=== PATIENT | female | born 1970 | race Caucasian/White ===

== ENCOUNTER → 2017-02-03 | Outpatient (CLI) | payer BC ==
--- NOTE | 2017-02-03 16:54 | REPMRS ---
Patient History The patient states she had a clinical breast exam in 01/31 Patient is postmenopausal and had first child at age 34. No known family history of cancer. Taking estrogen for 5 years. Digital Woman Screen Mammo: February 03, 2017 - Exam #: [id number] Bilateral CC and MLO view(s) were taken. Technologist: Jerilyn Morales, Technologist Prior study comparison: January 23, 2015, digital woman screen mammo performed at [facility]. 2012, digital bilateral screening mammo, performed at [facility]. FINDINGS: There are scattered fibroglandular densities. There has been no change in the appearance of the mammogram from the prior studies. There is a mild amount of residual fibroglandular tissue which is fairly symmetric. There is no interval development of dominant mass, architectural distortion, or clustered microcalcification suggestive of malignancy. ASSESSMENT: BI-RADS/ACR category 1 mammogram. Negative. Recommendation Routine screening mammogram in 1 year (for women over age 40). This mammogram was interpreted with the aid of an FDA-approved computer-aided dectection system. Electronically Signed By: Tr Lewis MD 02/03/17 [id number]
== END ==
LOC: M WHC 14:08
PROVIDERS: ATTEND Nurse Practitioner Women's Health
DX: Z12.31 Encounter for screening mammogram for malignant neoplasm of breast (principal)

== ENCOUNTER → 2017-08-01 | Outpatient (REF) | payer BC ==
[2017-08-01 18:37] LABS: ALBUMIN 4.1 GM/DL (3.2-5.2); ALBUMIN/GLOBULIN RATIO 1.21 (1.00-1.93); ALKALINE PHOSPHATASE 97 U/L (45-117); ALT/SGPT 27 U/L (12-78); ANION GAP 7 MEQ/L (8-16); AST/SGOT 42 U/L (7-37); BILIRUBIN,TOTAL 0.3 MG/DL (0.2-1.0); BLOOD UREA NITROGEN 22 MG/DL (7-18); CALCIUM LEVEL 8.7 MG/DL (8.5-10.1); CARBON DIOXIDE LEVEL 25 MEQ/L (21-32); CHLORIDE LEVEL 108 MEQ/L (98-107); CREATININE FOR GFR 0.61 MG/DL (0.55-1.30); GLOMERULAR FILTRATION RATE > 60.0 (>58); GLUCOSE, FASTING 82 MG/DL (70-100); SODIUM LEVEL 140 MEQ/L (136-145); TOTAL PROTEIN 7.5 GM/DL (6.4-8.2)
== END ==
LOC: M SFHCPLAZ 16:11
DX: Z00.00 Encounter for general adult medical examination without abnormal findings (principal); R63.5 Abnormal weight gain
CPT/HCPCS: 84443

== ENCOUNTER → 2018-02-09 | Outpatient (CLI) | payer BC | LOC: M WHC 13:03 | DX: Z12.31 Encounter for screening mammogram for malignant neoplasm of breast (principal); Z78.0 Asymptomatic menopausal state; Z79.890 Hormone replacement therapy | CPT/HCPCS: 77067 ==

== ENCOUNTER → 2019-02-27 | Outpatient (CLI) | payer BC ==
--- NOTE | 2019-02-27 16:39 | REPMRS ---
Patient History The patient states she had a clinical breast exam in 02/2019. Patient is postmenopausal and had first child at age 34. No known family history of cancer. Taking estrogen for 7 years. Digital Woman Screen Mammo: February 27, 2019 - Exam #: [id number] Bilateral CC and MLO view(s) were taken. Technologist: Myrna Orozco, Technologist Prior study comparison: February 09, 2018, bilateral digital woman screen mammo performed at [facility]. February 03, 2017, digital woman screen mammo [facility]. January 23, 2015, digital woman screen mammo performed at [facility]. FINDINGS: There are scattered fibroglandular densities. There has been no change in the appearance of the mammogram from the prior studies. There is a mild amount of scattered fibroglandular density which is fairly symmetric. There is no interval development of dominant mass, architectural distortion, or grouped microcalcification suggestive of malignancy. 3-D tomosynthesis shows no additional findings. Assessment: BI-RADS/ACR category 1 mammogram. Negative Mammogram. Recommendation Routine screening mammogram of both breasts in 1 year (for women over age 40). This patient's Lifetime Breast Cancer Risk is estimated at 10.4 %. This mammogram was interpreted with the aid of an FDA-approved computer-aided dectection system. Electronically Signed By: Bharat Perdomo MD 02/27/19 9300
== END ==
LOC: M WHC 13:27
PROVIDERS: ATTEND Nurse Practitioner Women's Health
DX: Z12.31 Encounter for screening mammogram for malignant neoplasm of breast (principal)

== ENCOUNTER → 2020-03-06 | Outpatient (CLI) | payer BC ==
--- NOTE | 2020-03-06 15:01 | REPMRS ---
Patient History The patient states she had a clinical breast exam in February 2020. No known family history of cancer. Taking estrogen for 7 years. 3D TOMOSYNTHESIS WAS PERFORMED. [facility] for breast cancer [facility] 10.[facility]%. Volpara breast density b. Digital Woman Screen Mammo: March 06, 2020 - Exam #: [id number] Bilateral CC and MLO view(s) were taken. Technologist: Roxy Sadler, Technologist Prior study comparison: February 27, 2019, bilateral digital woman screen mammo performed at [facility]. February 09, 2018, bilateral digital woman screen mammo performed at [facility]. FINDINGS: There are scattered fibroglandular densities. There has been no change in the appearance of the mammogram from the prior studies. There is a mild amount of residual fibroglandular tissue which is fairly symmetric. There is no interval development of dominant mass, architectural distortion, or clustered microcalcification suggestive of malignancy. Assessment: BI-RADS/ACR category 1 mammogram. Negative Mammogram. Recommendation Routine screening mammogram in 1 year (for women over age 40). This mammogram was interpreted with the aid of an FDA-approved computer-aided dectection system. Electronically Signed By: Tr Lewis MD 03/06/20 [id number]
== END ==
LOC: M WHC 13:01
PROVIDERS: ATTEND Nurse Practitioner Women's Health
DX: Z12.31 Encounter for screening mammogram for malignant neoplasm of breast (principal); Z79.899 Other long term (current) drug therapy

== ENCOUNTER → 2021-01-01 | Outpatient (CLI) | payer BC ==
--- NOTE | 2021-01-02 17:01 | REP ---
INDICATION: ENLARGED LYMPHNODE LT POSTIOR SIDE OF NECK COMPARISON: None. TECHNIQUE: Grayscale and color evaluation using linear high-frequency transducer. FINDINGS: Directed ultrasound examination along the left posterior aspect of the neck at the site of palpable mass demonstrates a small ovoid hypoechoic lesion with central fatty hilum measuring 11 x 4 x 10 mm and consistent with small lymph node. IMPRESSION: Findings suggest small benign appearing lymph node. <Electronically signed by Dequan Cooper > 01/02/21 [id number]
== END ==
LOC: M RAD 15:41
PROVIDERS: ATTEND Nurse Practitioner Adult Health
DX: R59.0 Localized enlarged lymph nodes (principal)

== ENCOUNTER 2021-02-15 11:59 | Emergency (ER) | payer BC ==
[~2021-02-15] VITALS: Ht 165.1 cm; Wt 65.0 kg
[2021-02-15 12:00] VITALS: BP 134/70
--- OUTSIDE RECORDS SUMMARY | 2021-02-15 12:06 | CCD ---
Author Author [facility] Organization [facility] Address Unknown Phone Unavailable Care Team Providers Care Vp Construction Name Role Phone Do, Denise Unavailable PROBLEMS Type Condition ICD9-CM Code IJR11-EI Code Onset Dates Condition S tatus W/U Status Risk SNOMED Code Notes Problem Postmenopausal HRT (hormone replacement therapy) V07.4 Active confirmed 851557960 Problem S/P hysterectomy with oophorectomy V88.01 Activ e confirmed 040022960 Problem Altered bowel habits R19.4 Active confirmed 18496024 Problem Right knee pain, unspecified chronicity M25.561 Active confirmed 96063381 Problem Lactose intolerance E73.9 Active confirmed 917879499 Problem Menopausal and female climacteric states N95.1 Active confirmed 923112616 Problem Hot flashes N95.1 Active confirmed 91356484 8 Problem Right sided sciatica M54.31 Active confirmed 66366158 Problem Hormone replacement therapy (postmenopausal) Z79.8 90 Active confirmed 069675045 Problem Varicose vein of leg I83.90 Active confirmed 03341197 Problem Gluten intolerance K90.0 Active confirmed 4 27414005 Problem 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 Active confirmed 151568320 Problem Acquired absence of both cervix and uterus Z90.710 Active confirmed 065403340 ALLERGIES No Known Allergies ENCOUNTERS from 1970 to 2020-12-08 Encounter Location Date Provider Diagnosis [address] [phone] [place] [address] 16 Nov, 2020 Denise Lei Wellness examination Z00.00 ; Lactose intolerance E73.9 ; Varicose vein of leg I83.90 ; Weight loss R63.4 ; Hot flashes N95.1 ; Right sided sciatica M54.31 ; Right knee pain, unspecified chronicity M25.561 ; Enlarged lymph node R59.9 ; Dermatitis L30.9 and Skin cancer screening Z12.83 IMMUNIZATIONS Vaccine Route Administration Date Status Influenza 6mo & up Fluzone Unknown Feb 03, 2017 Other s SOCIAL HISTORY Tobacco Use: Social History Observation Description Date Details (start date - stop date) Never Smoker Sex Assigned At : Social History Observation Description Sex Assigned At Unknown Audit Question Answer Notes Total Score: 1 Interpretation: Alcohol Education Buddhist: Question Answer Notes Buddhist 13 Baptism Sexual Hx: Question Answer Notes Had sex in the last 12 months (vaginal, oral, or anal)? Yes LMP: hyster Have you ever had an STD? No Prevention Strategies discussed: Other with Men only Use protection? No Drug and Alcohol Question Answer Notes Total Score: 0 Interpretation: No problems reported Alcohol Screening: Question Answer Notes Did you have a drink containing alcohol in the past year? Ye s Points 1 Interpretation Negative How often did you have six or more drinks on one occas ion in the past year? Never (0 points) How many drinks did you have on a typica l day when you were drinking in the past year? 1 or 2 (0 points) How often did you have a drink containing alcohol in t he past year? Monthly or less (1 point) Tobacco Use: Question Answer Notes Are you a: never smoker REASON FOR REFERRAL from 1972 to 2020-12-08 Reason please accept the referra to haritha and treat pt of Marychuy's from [place] transferred her records up here requesting yearly appt Diagnosis 1 Skin cancer screening (Z12.8 3) Referral Organization [facility] Melissa Referring Provider First Name Denise Referring Provider Last Name Do Referring Provider Specialty Family Medicine [facility] IR Referred Provider Marychuy Dial Referred Address [address] [place] [address],,[place], [place],[address] Referred Provider Specialty Dermatology Referral Priority Routine General Notes Lia Moses 11/30/2020 3:5 5:03 PM > referral sent VITAL SIGNS Weight 142.8 lbs Nov, Weight-kg 64.77 kg Nov, Height 65 in Nov, BMI 23.76 kg/m2 Nov, Heart Rate 68 /min Nov, Respiratory Rate 18 /min Nov, Temperature 97.8 degrees Fahrenheit Nov, Oximetry 99 Nov, Blood pressure systolic 108 mm Hg Nov, Blood pressure diastolic 60 mm Hg Nov, MEDICATIONS Medication SIG (Take, Route, Frequency, Duration) Notes Start Da te End Date Status Clobetasol Propionate 0.05 % 1 application Externally bid to area on posterior hair line for 30 days Nov, Active Vivelle-Dot 0.1 MG/24HR 1 patch to skin Transdermal Two times a Week for 30 day(s) Active Voltaren 1 % 4 gmqid prn right knee Trans dermal qid prn right knee pain for 30 days Active Probiotic - Orally Daily Not-Taking PROCEDURES No Information RESULTS No Results REASON FOR VISIT awv MEDICAL (GENERAL) HISTORY Type Description Date Medical History Menopausal and female climacteric states Medical History hx of endometriosis Medical History Gluten intolerance Medical History Lactose intolerance Medical History Right sided sciatica Surgical History C section Surgical History tubal ligation Surgical History hysterectomy, total with BSO 02/2011 Surgical History surgery right hand.plate and pins Surgical History Right knee surgery 02/2016 Surgical History right screw removed from knee SOS 9 Hospitalization History r/t surgeries Goals Section No Information Health Concerns No Information MEDICAL EQUIPMENT No Information MENTAL STATUS No Information FUNCTIONAL STATUS No Information ASSESSMENTS Encounter Date Diagnosis Assessment Notes Treatment Notes Treatm ent Clinical Notes Nov, Wellness examination (ICD-10 - Z00.00) age appropriate anticipatory guidance given, per USPSTF recommendations; . discussed plans for implementing improvement in identified areas Nov, Lactose intolerance (ICD-10 - E73.9) Trying to eat a lactose-free diet, uses Lactaid takes probiotics finds it helps Nov, Varicose vein of leg (ICD-10 - I83.90) Seen by [facility] in [place] underwent treatment, disappointed with results Nov, Weight loss (ICD-10 - R63.4) following with weight watchers has been walking. doing well Nov, Hot flashes (ICD-10 - N95.1) complete hyster , using patch with effect. Nov, Right sided sciatica (ICD-10 - M54.31) advised otc aleve 2 tabs bid take otc omeprazole for gastric protection following with chiro[ractor Nov, Right knee pain, unspecified chronicity (ICD-10 - M25.561) uses voltaren gel prn Nov, Enlarged lymph node (ICD-10 - R59.9) will obtain ultasound Nov, Dermatitis (ICD-10 - L30.9) ordered steroid ointment Nov, Skin cancer screening (ICD-10 - Z12.83) use to follow yearly with Marychuy in [place] had her records transferred up here, want referral to her to continue care. PLAN OF TREATMENT Medication Medication Name Sig Start Date Stop Date Clobetasol Propionate 0.05 % 1 application Externally bid to area on posterior hair line for 30 days Nov, Voltaren 1 % 4 gmqid prn right knee Trans dermal qid prn right knee pain for 30 days Treatment Notes Assessment Notes Clinical Notes Wellness examination age appropriate ant icipatory guidance given, per USPSTF recommendations; . discussed plans for implementing improvement in identified areas Lactose intolerance Trying to eat a lact ose-free diet, uses Lactaid takes probiotics finds it helps Varicose vein of leg Seen by [facility] in [place] underwent treatment, disappointed with results Weight loss following with weigh t watchers has been walking. doing well Hot flashes complete hyster , us ing patch with effect. Right sided sciatica advised otc aleve 2 tabs bid take otc omeprazole for gastric protectionfollowing with chiro[ractor Right knee pain, unspecified chronicity uses voltaren gel prn Enlarged lymph node will obtain ultasoun d Dermatitis ordered steroid oint ment Skin cancer screening use to follow year ly with Marychuy in [place] had her records transferred up here, want referral to her to continue care. Treatment Notes Test Name Order Date Ultrasound : Neck 2020-11-30 Referrals Referral Date Details please accept the referra to eval and treat pt of Marychuy's from [place] transferred her records up here requesting yearly appt, Marychuy Dial, [address] [place], [address], Next Appt Details Denise 1 year annual wellness Reason: Provider Name:Denise Lei, 10:30:00 AM, [address] [facility], , [place], [address], Insurance Providers Payer Name Payer Address Payer Phone Insured Name Patient Relati onship to Insured Coverage Start Date Coverage End Date BCBS OF [place] [phone] [facility] [id number] ROXANNA BATISTA self
--- OUTSIDE RECORDS SUMMARY | 2021-02-15 12:07 | CCD ---
Author Author [facility] Organization [facility] Address Unknown Phone Unavailable Care Team Providers Care Customer Project Manager Name Role Phone Iban GRACE NP Unavailable Unavailable LAROCKIban NP Unavailable Unavailable LAROCKIban NP Unavailable Unavailable LAROCKIban NP Unavailable Unavailable LAROCKIban NP Unavailable Unavailable LAROCKIban NP Unavailable Unavailable MORENOOCKIban NP Unavailable Unavailable MORENOOCKIban NP Unavailable Unavailable MORENOOCKIban NP Unavailable Unavailable MORENOOCKIban NP Unavailable Unavailable Iban GRACE NP Unavailable Unavailable Iban GRACE NP Unavailable Unavailable Iban GRACE NP Unavailable Unavailable Iban GRACE NP Unavailable Unavailable Iban GRACE NP Unavailable Unavailable Iban GRACE NP Unavailable Unavailable Iban GRACE NP Unavailable Unavailable LAROCK, Iban VILLARREAL AIRCRAFT DESIGN ENGINEER Unavailable Unavailable LAROCK, Iban VILLARREAL AIRCRAFT DESIGN ENGINEER Unavailable Unavailable LAROCK, Iban VILLARREAL AIRCRAFT DESIGN ENGINEER Unavailable Unavailable LAROCK, Iban VILLARREAL AIRCRAFT DESIGN ENGINEER Unavailable Unavailable LAROCK, Iban VILLARREAL AIRCRAFT DESIGN ENGINEER Unavailable Unavailable Re-disclosure Warning The records that you are about to access may contain information from federally-assisted alcohol or drug abuse programs. If such information is present, then the following federally mandated warning applies: This information has been disclosed to you from records protected by federal confidentiality rules (42 CFR part 2). The federal rules prohibit you from making any further disclosure of this information unless further disclosure is expressly permitted by the written consent of the person to whom it pertains or as otherwise permitted by 42 CFR part 2. A general authorization for the release of medical or other information is NOT sufficient for this purpose. The Federal rules restrict any use of the information to criminally investigate or prosecute any alcohol or drug abuse patient.The records that you are about to access may contain highly sensitive health information, the redisclosure of which is protected by Article 27-F of the [place] Public Health law. If you continue you may have access to information: Regarding HIV / AIDS; Provided by facilities licensed or operated by the [place] Office of Mental Health; or Provided by the [facility] Office for People With Developmental Disabilities. If such information is present, then the following [facility] mandated warning applies: This information has been disclosed to you from confidential records which are protected by state law. State law prohibits you from making any further disclosure of this information without the specific written consent of the person to whom it pertains, or as otherwise permitted by law. Any unauthorized further disclosure in violation of state law may result in a fine or long term sentence or both. A general authorization for the release of medical or other information is NOT sufficient authorization for further disc losure. Encounters Encounter Providers Location Date Indications Data Source(s ) Outpatient Attender: PHIL GRACE NP 01/16 11:55:43 AM EDT - 02/05/2021 01:20:12 PM EDT [facility] ([facility] ) [place] [address] [facility] [address] 11/30/2020 12:00:00 AM EDT eCW1 ([facility]) [place] [address] [facility] [address] 10/14/2020 12:00:00 AM EDT eCW1 ([facility]) [place] [address] [facility] [address] 03/06/2020 12:00:00 AM EST eCW1 ([facility]) Medications Medication Brand Name Start Date Product Form Dose Route Admi nistrative Instructions Pharmacy Instructions Status Indications Reaction Description Data Source(s) Clobetasol Propionate 0.0005 MG/MG Topical Ointment 0. 05 % CLOBETASOL PROPIONATE 12/01/2020 12:00:00 AM EDT ointment 60 A PPLY TOPICALLY TO THE AFFECTED AREA - POSTERIOR HAIR LINE - TWO TIMES A DAY FOR 30 DAYS APPLY TOPICALLY TO THE AFFECTED AREA - POSTERIOR HAIR LINE - TWO TIMES A DAY FOR 30 DAYS SOLD: 12/01/2020 [facility] Clobetasol Propionate 0.0005 MG/MG Topic al Ointment Clobetasol Propionate 0.05 % Clobetasol Propionate 0.05 % 11/30/2020 12:00:00 AM EDT 1.0 {application} active Clobetasol Propionate 0.05 % eCW1 (Pending Sale To [facility]) 0.1 mg/24 hr 03/07/2020 12:00:00 AM EST patch semiweekly 8 APPLY ONE PATCH TOPICALLY TWICE WEEKLY APPLY ONE PATCH TOPICALLY TWICE WEEKLY SOLD: 08/24/2020 [facility] 0.1 mg/24 hr 03/07/2020 12:00:00 AM EST patch semiweekly 8 APPLY ONE PATCH TOPICALLY TWICE WEEKLY APPLY ONE PATCH TOPICALLY TWICE WEEKLY SOLD: 03/10/2020 [facility] 0.1 mg/24 hr 03/07/2020 12:00:00 AM EST patch semiweekly 8 APPLY ONE PATCH TOPICALLY TWICE WEEKLY APPLY ONE PATCH TOPICALLY TWICE WEEKLY SOLD: 07/09/2020 [facility] 0.1 mg/24 hr 03/07/2020 12:00:00 AM EST patch semiweekly 8 APPLY ONE PATCH TOPICALLY TWICE WEEKLY APPLY ONE PATCH TOPICALLY TWICE WEEKLY SOLD: 05/14/2020 [facility] 0.1 mg/24 hr 03/07/2020 12:00:00 AM EST patch semiweekly 8 APPLY ONE PATCH TOPICALLY TWICE WEEKLY APPLY ONE PATCH TOPICALLY TWICE WEEKLY SOLD: 12/24/2020 [facility] 0.1 mg/24 hr 03/07/2020 12:00:00 AM EST patch semiweekly 8 APPLY ONE PATCH TOPICALLY TWICE WEEKLY APPLY ONE PATCH TOPICALLY TWICE WEEKLY SOLD: 10/20/2020 [facility] 0.1 mg/24 hr 04/11/2019 12:00:00 AM EST patch semiweekly 8 APPLY 1 PATCH TOPICALLY TWICE WEEKLY APPLY 1 PATCH TOPICALLY TWICE WEEKLY SOLD: 01/18/2020 [facility] Insurance Providers Payer name Policy type / Coverage type Policy ID Covered alliance party ID Covered alliance party's relationship to reaves Policy Reaves Plan Information RMSCO [id number] SP [id number] Blue Cross Blue Shield P [id number] SELF [id number] BCBS of [facility] Other 302/802 [id number] Self 302/802 BCBS of [facility] Other 302/802 [id number] Self 302/802 BCBS of [facility] Other 302/802 [id number] Self 302/802 BCBS of [facility] Other 302/802 [id number] Self 302/802 Blue Cross Blue Shield P [id number] SELF [id number] BCBS of [facility] Other 302/802 [id number] Self 302/802 [employer] Blue Cross and Blue Shield [facility] Blue Cross/ Blue Shield [id number] Self [id number] [employer] Blue Cross [id number] Blue Cross/Karen eld [id number] BLUE CROSS [id number] SP [id number] [employer]IF[employer] BENEF[employer] [id number] 0 [id number] LIFETIME BENEFIT SOLUTIONS [id number] SP [id number] [employer]IF[employer] BENEFIT SOLUTIONS [id number] SP [id number] [employer] CLAIMS [id number] SP [id number] [employer]ICAL CLAIMS [id number] SP [id number] [employer] MEDICAL CLAIMS [id number] SP [id number] [facility] ADMINISTATORS [id number] SP [id number] [facility] ADMINISTATORS [id number] SP [id number] [employer] MEDICAL CLAIMS [id number] SP [id number] [employer] PPO 2 [id number] 1 [id number] SELF PAY 2 UNAVAILABLE 1 UNAVAILA BLE [id number] [employer] [place] PPO 302/307 [id number] SP [id number] [employer] [place] 306/806 [id number] SP [id number] [employer] BCBS B [id number] S [id number] [employer]BS [place] PPO 302/307 [id number] SP [id number] ANSI-Commercial [id number] ANSI-Commercial [id number] [employer] [place] 306/806 [id number] SP [id number] ID [id number] [id number] Other Insurance [id number] Problems, Conditions, and Diagnoses No Information Surgeries/Procedures No Information Results ID Date Data Source [id number] 02/05/2021 12:45:00 PM [facility] Value Range Interpretation Code Description Data Christy rce(s) Supporting Document(s) SARS-CoV-2 RNA Resp Ql BONY+probe DETECTED [facility] This lab was ordered by ELAINE damon and reported by ELAINE Patterson. Procedure Social History Code Duration Value Status Description Data Source(s ) Smoking 12/05/2020 12:00:00 AM EDT Never Smoker completed Never S moker eCW1 (Pending Sale To [facility]) Smoking 10/14/2020 12:00:00 AM EDT Never Smoker completed Never S moker eCW1 (Pending Sale To [facility]) Smoking 03/06/2020 12:00:00 AM EST Never Smoker completed Never S moker eCW1 (Pending Sale To [facility]) Vital Signs ID Date Data Source UNK Name Value Range Interpretation Code Description Data Source(s) Body weight 142.8 [lb_av] 142.8 [lb_av] eCW1 ([facility]) Body weight 64.77 kg 64.77 kg eCW1 ([facility]) Body height 65 [in_i] 65 [in_i] eCW1 ([facility]) Body mass index (BMI) [Ratio] 23.76 kg/m2 23.76 kg/m2 eCW1 (Pending [facility] To [facility]) Heart rate 68 /min 68 /min eCW1 ([facility]) Respiratory rate 18 /min 18 /min eCW1 ([facility]) Body temperature 97.8 [degF] 97.8 [degF] eCW1 ( Pending Sale To [facility]) Systolic blood pressure 108 mm[Hg] 108 mm[Hg] e CW1 (Pending Sale To [facility]) Diastolic blood pressure 60 mm[Hg] 60 mm[Hg] eCW1 (Pending Sale To [facility]) Body weight 153 [lb_av] 153 [lb_av] eCW1 ([facility]) Body weight 69.4 kg 69.4 kg eCW1 ([facility]) Body height 65 [in_i] 65 [in_i] eCW1 ([facility]) Body mass index (BMI) [Ratio] 25.46 kg/m2 25.46 kg/m2 eCW1 (Pending Sale To [facility]) Systolic blood pressure 122 mm[Hg] 122 mm[Hg] e CW1 (Pending Sale To [facility]) Diastolic blood pressure 70 mm[Hg] 70 mm[Hg] eCW1 (Pending Sale To [facility]) Patient Treatment Plan of Care Planned Activity Planned Date Details Description Data Source (s) Clobetasol Propionate 0.0005 MG/MG Topical Ointment 12/01/19 12:00:00 AM EDT eCW1 ([facility])
[2021-02-15] MEDS ORDERED: ESTR1DIS (12:19)
[2021-02-15] MEDS ORDERED: ACETAMINOPHEN 500 MG TAB PO ONE (17:40)
[2021-02-15] MEDS ORDERED: IBUPROFEN 800 MG TAB PO ONE (17:40)
--- NOTE | 2021-02-15 18:01 | REP ---
INDICATION: COVID-19, COUGH, CHEST PAIN, R/O PNEUMONIA. COMPARISON: None. TECHNIQUE: Single portable AP view of the chest was performed. FINDINGS: There is mild right basilar infiltrate laterally. There is possible mild infiltrate in the left lung base. The heart and mediastinum are unremarkable. IMPRESSION: Mild right basilar infiltrate. Possible mild left base infiltrate. <Electronically signed by Tr Lewis > 02/15/21 7945
[2021-02-15] MEDS ORDERED: ZITHTAB PO (19:05)
--- OUTSIDE RECORDS SUMMARY | 2021-02-15 19:26 | CCD ---
Author Author [facility] Organization [facility] Address Unknown Phone Unavailable Care Team Providers Care Service Car Driver Name Role Phone Iban GRACE NP Unavailable [...] GRACE NP Unavailable Unavailable LAROCK, Iban VILLARREAL BUS TRANSPORTATION MANAGER Unavailable Unavailable LAROCK, Iban VILLARREAL BUS TRANSPORTATION MANAGER Unavailable Unavailable LAROCK, Iban VILLARREAL BUS TRANSPORTATION MANAGER Unavailable Unavailable LAROCK, Iban VILLARREAL BUS TRANSPORTATION MANAGER Unavailable Unavailable LAROCK, Iban VILLARREAL BUS TRANSPORTATION MANAGER Unavailable Unavailable Re-disclosure Warning The records that [...] is protected by Article 27-F of the [facility] Public Health law. If you continue you may have access to information: Regarding HIV / AIDS; Provided by facilities licensed or operated by the [facility] Office of Mental Health; or Provided by the [facility] Office for People With Developmental Disabilities. If such information is present, then the following [facility] mandated warning applies: This information has been [...] law may result in a fine or longterm sentence or both. A general authorization for the release of medical or other information is NOT sufficient authorization for further disc losure. Encounters Encounter Providers Location Date Indications Data Source(s ) Outpatient Attender: PHIL GRACE NP 01/16 11:55:43 AM EDT - 02/05/2021 01:20:12 PM EDT [facility] ([facility] ) [place] [address] [facility] [address] 11/30/2020 12:00:00 AM EDT eCW1 ([facility]) [place] [address] [facility] [address] 10/14/2020 12:00:00 AM EDT eCW1 ([facility]) [place] [address] [facility] [address] 03/06/2020 12:00:00 AM EST eCW1 ([facility]) Medications Medication Brand Name Start Date [...] {application} active Clobetasol Propionate 0.05 % eCW1 ([facility]) 0.1 mg/24 hr 03/07/2020 12:00:00 AM EST [...] type / Coverage type Policy ID Covered republican ID Covered republican's relationship to reaves Policy Reaves Plan Information RMSCO [id number] SP [id number] Blue Cross Blue Shield P [id number] SELF [id number] Blue Cross Blue Shield P [id number] SELF [id number] BCBS of [facility] Other 302/802 [id number] Self 302/802 BCBS of [facility] Other 302/802 [id number] Self 302/802 BCBS of [facility] Other 302/802 [id number] Self 302/802 BCBS of [facility] Other 302/802 [id number] Self 302/802 BCBS of [facility] Other 302/802 [id number] Self 302/802 [facility] Blue Cross and Blue Shield [facility] Blue Cross/ Blue Shield VYW Self VYW BLUE CROSS [id number] SP [id number] [employer] [id number] 0 [id number] [employer] [id number] SP [id number] [employer] [id number] SP [id number] [employer] [id number] SP [id number] [employer] [id number] SP [id number] [employer]S [id number] SP [id number] [facility] [id number] SP [id number] [facility] [id number] SP [id number] [employer]S [id number] SP [id number] [employer] PPO 2 [id number] 1 [id number] SELF PAY 2 UNAVAILABLE 1 UNAVAILA BLE [employer]BS [place] PPO 302/307 [id number] SP [id number] [employer] [place] 306/806 [id number] SP [id number] [employer] B [id number] S [id number] [employer] [place] PPO 302/307 [id number] SP [id number] ANSI-Commercial [id number] ANSI-Commercial [id number] [employer] [place] 306/806 [id number] SP [id number] ID [id number] [id number] Other Insurance [id number] [employer] [id number] Blue Cross/Karen eld [id number] Problems, Conditions, and Diagnoses No Information Surgeries/Procedures No Information Results ID Date Data Source [id number] 02/05/2021 12:45:00 PM EDT [facility] Name Value Range Interpretation Code Description Data Christy rce(s) Supporting Document(s) SARS-CoV-2 RNA Resp Ql BONY+probe DETECTED [facility] This lab was ordered by ELAINE damon and reported by ELAINE Patterson. Procedure Social History Code Duration Value Status Description Data Source(s ) Smoking 12/05/2020 12:00:00 AM EDT Never Smoker completed Never S moker eCW1 ([facility]) Smoking 10/14/2020 12:00:00 AM EDT Never Smoker completed Never S moker eCW1 ([facility]) Smoking 03/06/2020 12:00:00 AM EST Never Smoker completed Never S moker eCW1 ([facility]) Vital Signs ID Date Data Source UNK Name Value Range Interpretation Code Description Data Source(s) Body weight 142.8 [lb_av] 142.8 [lb_av] eCW1 ([facility]) Body weight 64.77 kg 64.77 kg eCW1 ([facility]) Body height 65 [in_i] 65 [in_i] eCW1 ([facility]) Body mass index (BMI) [Ratio] 23.76 kg/m2 23.76 kg/m2 eCW1 ([facility]) Heart rate 68 /min 68 /min eCW1 ([facility]) Respiratory rate 18 /min 18 /min eCW1 ([facility]) Body temperature 97.8 [degF] 97.8 [degF] eCW1 ( [facility]) Systolic blood pressure 108 mm[Hg] 108 mm[Hg] e CW1 ([facility]) Diastolic blood pressure 60 mm[Hg] 60 mm[Hg] eCW1 ([facility]) Body weight 153 [lb_av] 153 [lb_av] eCW1 [facility] Body weight 69.4 kg 69.4 kg eCW1 ([facility]) Body height 65 [in_i] 65 [in_i] eCW1 ([facility]) Body mass index (BMI) [Ratio] 25.46 kg/m2 25.46 kg/m2 eCW1 ([facility]) Systolic blood pressure 122 mm[Hg] 122 mm[Hg] e CW1 ([facility]) Diastolic blood pressure 70 mm[Hg] 70 mm[Hg] eCW1 ([facility]) Patient Treatment Plan of Care Planned Activity Planned Date Details Description Data Source (s) Clobetasol Propionate 0.0005 MG/MG Topical Ointment 12/01/19 12:00:00 AM EDT eCW1 ([facility])
--- NOTE | 2021-02-16 08:27 | ECGEPIP ---
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
== END 2021-02-15 19:54 | disposition home or self-care (01) ==
LOC: M ED 11:59
DX: J18.9 Pneumonia, unspecified organism (principal); R51.9 Headache, unspecified; R05.9 Cough, unspecified; R07.9 Chest pain, unspecified; Z86.16 Personal history of COVID-19; Z79.890 Hormone replacement therapy

== ENCOUNTER → 2021-12-06 | Outpatient (REF) | payer BC ==
[~2021-12-06] MED LIST: ESTR1DIS; ZITHTAB PO
== END ==
LOC: M PLALAB 10:39
PROVIDERS: ATTEND Nurse Practitioner Family
DX: Z12.4 Encounter for screening for malignant neoplasm of cervix (principal)
CPT/HCPCS: 87624; G0123

== ENCOUNTER → 2021-12-06 | Outpatient (CLI) | payer BC | LOC: M WHC 09:00 | PROVIDERS: ATTEND Nurse Practitioner Family | DX: Z12.31 Encounter for screening mammogram for malignant neoplasm of breast (principal) ==

== ENCOUNTER → 2021-12-06 | Outpatient (CLI) | payer BC ==
[2021-12-06 15:09] LABS: ALT/SGPT 24 U/L (12-78); BILIRUBIN,TOTAL 0.6 MG/DL (0.2-1.0); BLOOD UREA NITROGEN 16 MG/DL (7-18); CALCIUM LEVEL 9.2 MG/DL (8.5-10.1); CARBON DIOXIDE LEVEL 24 MEQ/L (21-32); CHLORIDE LEVEL 105 MEQ/L (98-107); CREATININE FOR GFR 0.58 MG/DL (0.55-1.30); GLOMERULAR FILTRATION RATE > 60.0 (>58); GLUCOSE, FASTING 83 MG/DL (70-100); POTASSIUM SERUM 4.1 MEQ/L (3.5-5.1); SODIUM LEVEL 137 MEQ/L (136-145); TOTAL PROTEIN 7.1 GM/DL (6.4-8.2)
== END ==
LOC: M PLALAB 11:46
PROVIDERS: ATTEND Nurse Practitioner Adult Health
DX: Z00.00 Encounter for general adult medical examination without abnormal findings (principal); R23.2 Flushing

== ENCOUNTER → 2022-07-19 | Outpatient (REF) | payer BC | LOC: M SFHCPLAZ 13:13 | PROVIDERS: ATTEND Nurse Practitioner Adult Health | DX: J02.9 Acute pharyngitis, unspecified (principal) ==

== ENCOUNTER → 2023-01-18 | Outpatient (CLI) | payer BC | LOC: M WHC 15:26 | PROVIDERS: ATTEND Nurse Practitioner Family | DX: Z12.31 Encounter for screening mammogram for malignant neoplasm of breast (principal) ==

== ENCOUNTER → 2023-01-18 | Outpatient (CLI) | payer BC ==
[2023-01-18 18:02] LABS: HEMATOCRIT 40.5 % (36.0-47.0); HEMOGLOBIN 13.4 g/dl (12.0-15.5); MEAN CORPUSCULAR HEMOGLOBIN 31.8 pg (27.0-33.0); MEAN CORPUSCULAR HGB CONC 33.1 g/dl (32.0-36.5); MEAN CORPUSCULAR VOLUME 96.2 fl (80.0-96.0); PLATELET COUNT, AUTOMATED 193 10^3/uL (150-450); RED BLOOD COUNT 4.21 10^6/uL (4.00-5.40)
[2023-01-18 18:29] LABS: ALBUMIN 4.1 G/DL (3.2-5.2); ALKALINE PHOSPHATASE 58 U/L (46-116); ALT/SGPT 22 U/L (7.0-40); AST/SGOT 22 U/L (<34); BILIRUBIN,TOTAL 0.6 MG/DL (0.3-1.2); BLOOD UREA NITROGEN 21 MG/DL (9-23); CALCIUM LEVEL 9.1 MG/DL (8.5-10.1); CARBON DIOXIDE LEVEL 28 MMOL/L (20-31); CHLORIDE LEVEL 103 MMOL/L (98-107); CREATININE FOR GFR 0.56 MG/DL (0.55-1.30); GLOMERULAR FILTRATION RATE > 60.0 (>51); GLUCOSE, FASTING 80 MG/DL (60-100); POTASSIUM SERUM 4.1 MMOL/L (3.5-5.1); SODIUM LEVEL 137 MMOL/L (136-145); TOTAL PROTEIN 6.5 G/DL (5.7-8.2)
[2023-01-18 18:30] LABS: THYROID STIMULATING HORMONE 2.511 uIU/ML (0.55-4.78); TOTAL 25(OH) VITAMIN D 23.5 NG/ML (20.0-100.0)
== END ==
LOC: M PLALAB 16:48
PROVIDERS: ATTEND Nurse Practitioner Adult Health
DX: Z00.00 Encounter for general adult medical examination without abnormal findings (principal); R23.2 Flushing; Z12.11 Encounter for screening for malignant neoplasm of colon

== ENCOUNTER → 2023-08-24 | Outpatient (CLI) | payer BC | LOC: M PLAIMG 16:39 | PROVIDERS: ATTEND Chiropractor | DX: M25.532 Pain in left wrist (principal); M79.89 Other specified soft tissue disorders ==

== ENCOUNTER → 2024-05-14 | Outpatient (CLI) | payer BC ==
[2024-05-14 14:57] LABS: BASO % 0.5 % (0.0-1.0); EOS # 0.1 10^3/uL (0.0-0.5); EOS % 2.3 % (0.0-3.0); HEMATOCRIT 44.5 % (36.0-47.0); HEMOGLOBIN 14.8 g/dl (12.0-15.5); LYMPH # 0.9 10^3/uL (1.5-5.0); LYMPH % 22.7 % (24.0-44.0); MEAN CORPUSCULAR HEMOGLOBIN 31.1 pg (27.0-33.0); MEAN CORPUSCULAR HGB CONC 33.3 g/dl (32.0-36.5); MEAN CORPUSCULAR VOLUME 93.5 fl (80.0-96.0); MONO # 0.5 10^3/uL (0.0-0.8); MONO % 13.1 % (2.0-8.0); NEUTROPHILS # 2.3 10^3/uL (1.5-8.5); NEUTROPHILS % 61.1 % (36.0-66.0); PLATELET COUNT, AUTOMATED 209 10^3/uL (150-450); RED BLOOD COUNT 4.76 10^6/uL (4.00-5.40); WHITE BLOOD COUNT 3.8 10^3/uL (4.0-10.0)
[2024-05-14 15:09] LABS: ALKALINE PHOSPHATASE 50 U/L (35-104); ALT/SGPT 23 U/L (7.0-40); AST/SGOT 21 U/L (<34); BILIRUBIN,TOTAL 0.5 MG/DL (0.3-1.2); BLOOD UREA NITROGEN 18 MG/DL (9-23); CALCIUM LEVEL 8.8 MG/DL (8.5-10.1); CARBON DIOXIDE LEVEL 28 MMOL/L (20-31); CHLORIDE LEVEL 103 MMOL/L (98-107); CREATININE FOR GFR 0.53 MG/DL (0.55-1.30); GLOMERULAR FILTRATION RATE > 60.0 (>51); GLUCOSE, FASTING 83 MG/DL (60-100); POTASSIUM SERUM 4.6 MMOL/L (3.5-5.1); SODIUM LEVEL 139 MMOL/L (136-145); TOTAL PROTEIN 6.9 G/DL (5.7-8.2)
[2024-05-14 15:11] LABS: INR 0.89; PARTIAL THROMBOPLASTIN TIME 32.4 SECONDS (24.8-34.2); PROTHROMBIN TIME 12.3 SECONDS (12.5-14.5); PTH INTACT 68.4 PG/ML (18.5-88.0)
[2024-05-14 15:13] LABS: TOTAL 25(OH) VITAMIN D 17.8 NG/ML (20.0-100.0)
== END ==
LOC: M PLALAB 12:20
PROVIDERS: ATTEND Family Medicine
DX: Z01.818 Encounter for other preprocedural examination (principal); E55.9 Vitamin D deficiency, unspecified

== ENCOUNTER → 2024-05-21 | Outpatient (CLI) | payer BC | LOC: M WHC 15:57 | PROVIDERS: ATTEND Advanced Practice Midwife | DX: Z12.31 Encounter for screening mammogram for malignant neoplasm of breast (principal); R92.313 Mammographic fatty tissue density, bilateral breasts ==